=== PATIENT | female | born 1950 | race Native Hawaiian/Other Pacific Islander ===

== ENCOUNTER 2016-10-20 10:39 | Outpatient (CLI) | payer OTHER ==
[~2016-10-20 10:39] MED LIST: HUMALOG100 MG/ML SC; INSU100I2 SC; LISI10TA11 PO; MELOXICAM15 MG PO; METFORMIN ER1000 MG PO; PANT40TA PO
== END 2016-10-20 19:26 | disposition home or self-care (01) ==
LOC: US 10:39
DX: R22.31 Localized swelling, mass and lump, right upper limb (principal)

== ENCOUNTER 2016-11-28 10:31 | Outpatient (CLI) | payer OTHER | END 2016-11-28 12:00 | disposition home or self-care (01) | LOC: MRI 10:31 | DX: R22.31 Localized swelling, mass and lump, right upper limb (principal) | CPT/HCPCS: 36415; 82565; 84520; A9576 ==

== ENCOUNTER 2017-04-09 08:28 | Outpatient (CLI) | payer OTHER ==
[2017-04-09 10:02] LABS: POTASSIUM 4.4 mmol/L (3.6-5.2)
[2017-04-09 11:43] LABS: LDL CHOLESTEROL 136.6 mg/dL (0-99*)
== END 2017-04-09 09:30 | disposition home or self-care (01) ==
LOC: LABW 08:28
PROVIDERS: Internal Medicine
DX: E11.9 Type 2 diabetes mellitus without complications (principal)
CPT/HCPCS: 36415; 80053; 80061; 82043; 82570; 83036

== ENCOUNTER 2017-04-10 10:38 | Outpatient (CLI) | payer OTHER | END 2017-04-10 11:40 | disposition home or self-care (01) | LOC: RAD 10:38 | DX: M85.88 Other specified disorders of bone density and structure, other site (principal); Z13.820 Encounter for screening for osteoporosis ==

== ENCOUNTER 2017-04-14 13:33 | Outpatient (CLI) | payer OTHER | END 2017-04-14 14:50 | disposition home or self-care (01) | LOC: MAMMO 13:33 | DX: Z12.31 Encounter for screening mammogram for malignant neoplasm of breast (principal) ==

== ENCOUNTER 2017-11-19 07:29 | Outpatient (CLI) | payer OTHER ==
[2017-11-19 08:34] LABS: PLATELET COUNT 129 K/uL (152-353)
[2017-11-19 09:04] LABS: POTASSIUM 3.9 mmol/L (3.6-5.2)
== END 2017-11-19 19:22 | disposition home or self-care (01) ==
LOC: LABW 07:29
PROVIDERS: Internal Medicine
DX: E11.9 Type 2 diabetes mellitus without complications (principal); Z86.79 Personal history of other diseases of the circulatory system; R82.99 Other abnormal findings in urine
CPT/HCPCS: 36415; 80053; 80061; 81000; 82043; 82570; 83036; 83880; 84443; 85027; 87088

== ENCOUNTER 2018-02-26 11:37 | Outpatient (CLI) | payer OTHER | END 2018-02-26 19:47 | disposition home or self-care (01) | LOC: RAD 11:37 | DX: K74.69 Other cirrhosis of liver (principal) ==

== ENCOUNTER 2018-03-02 07:50 | Outpatient (CLI) | payer OTHER ==
[2018-03-02 09:06] LABS: POTASSIUM 4.6 mmol/L (3.6-5.2)
== END 2018-03-02 19:04 | disposition home or self-care (01) ==
LOC: LABW 07:50
PROVIDERS: Internal Medicine
DX: Z09 Encounter for follow-up examination after completed treatment for conditions other than malignant neoplasm (principal); E11.9 Type 2 diabetes mellitus without complications; R82.99 Other abnormal findings in urine
CPT/HCPCS: 36415; 80053; 80061; 81000; 82043; 82570; 83036; 84443; 87088

== ENCOUNTER 2018-04-13 07:56 | Outpatient (CLI) | payer OTHER | END 2018-04-13 22:23 | disposition home or self-care (01) | LOC: CT 07:56 | DX: R10.813 Right lower quadrant abdominal tenderness (principal) | CPT/HCPCS: 36415; 82565; 84520; Q9963 ==

== ENCOUNTER 2018-05-04 14:45 | Outpatient (CLI) | payer OTHER | END 2018-05-04 22:44 | disposition home or self-care (01) | LOC: MAMMO 14:45 | DX: E11.9 Type 2 diabetes mellitus without complications (principal); Z12.31 Encounter for screening mammogram for malignant neoplasm of breast ==

== ENCOUNTER 2018-11-03 03:56 | Outpatient (CLI) | payer OTHER | END 2018-11-03 04:11 | disposition short-term general hospital (02) | LOC: AMB 03:56 | DX: L76.22 Postprocedural hemorrhage of skin and subcutaneous tissue following other procedure (principal) | CPT/HCPCS: A0425; A0429 ==

== ENCOUNTER 2018-11-03 04:18 | Emergency (ER) | payer OTHER ==
[~2018-11-03] VITALS: Ht 160 cm; Wt 77.1 kg
[2018-11-03 05:15] LABS: PLATELET COUNT 187 K/uL (152-353)
[2018-11-03 05:34] LABS: POTASSIUM 4.1 mmol/L (3.6-5.2)
[2018-11-03 06:20] LABS: PARTIAL THROMBOPLASTIN TIME 22.6 SECONDS (24.5-33.6)
[2018-11-03 06:47] VITALS: BP 129/65; TEMP 99.5
== END 2018-11-03 06:51 | disposition home or self-care (01) ==
LOC: ED 04:18
PROVIDERS: Internal Medicine
DX: R10.84 Generalized abdominal pain (principal); Z98.890 Other specified postprocedural states; T81.30XA Disruption of wound, unspecified, initial encounter
CPT/HCPCS: 36415; 74022; 80053; 85027; 85610; 85730; 99283

== ENCOUNTER 2018-11-30 14:14 | Inpatient (IN) | payer OTHER ==
[~2018-11-30] VITALS: Ht 160 cm; Wt 81.7 kg
[2018-11-30 16:39] VITALS: BP 107/44; TEMP 98.4; Ht 160 cm; Wt 81.7 kg
[2018-11-30 20:00] VITALS: BP 109/52; TEMP 98.1
[2018-12-01 00:12] VITALS: BP 112/50; TEMP 98.2
[2018-12-01 04:00] VITALS: BP 104/41; TEMP 98.6
[2018-12-01 05:22] LABS: PLATELET COUNT 208 K/uL (152-353)
[2018-12-01 05:45] LABS: POTASSIUM 3.8 mmol/L (3.6-5.2)
[2018-12-01 08:00] VITALS: BP 127/54; TEMP 98.2
[2018-12-01 12:00] VITALS: BP 110/53; TEMP 98.5
[2018-12-01 16:00] VITALS: BP 116/55; TEMP 99
[2018-12-01 20:00] VITALS: BP 105/52; TEMP 100.5
[2018-12-02] VITALS (7 sets, daily range): BP systolic 92–122; BP diastolic 40–57; TEMP 98.7–100
[2018-12-02 04:57] LABS: PLATELET COUNT 232 K/uL (152-353)
[2018-12-02 05:15] LABS: POTASSIUM 4.3 mmol/L (3.6-5.2)
[2018-12-03 04:00] VITALS: BP 111/43; TEMP 99
[2018-12-03 04:37] LABS: PLATELET COUNT 230 K/uL (152-353)
[2018-12-03 04:56] LABS: POTASSIUM 3.5 mmol/L (3.6-5.2)
[2018-12-03 08:00] VITALS: BP 100/36; TEMP 98.8
[2018-12-03 12:00] VITALS: BP 93/41; TEMP 98.1
[2018-12-03 16:00] VITALS: BP 93/41; BP 93/57; TEMP 100.6; TEMP 98.1
[2018-12-03 20:10] VITALS: BP 111/52; TEMP 100.1
[2018-12-04] VITALS: BP 105/63; TEMP 98.1
[2018-12-04 04:00] VITALS: BP 115/43; TEMP 99.7
[2018-12-04 04:50] LABS: PLATELET COUNT 275 K/uL (152-353)
[2018-12-04 05:26] LABS: POTASSIUM 3.9 mmol/L (3.6-5.2)
[2018-12-04 08:00] VITALS: BP 118/49; TEMP 100.1
[2018-12-04 12:00] VITALS: BP 118/59; TEMP 98.2
[2018-12-04 16:00] VITALS: BP 102/50; TEMP 98.2
[2018-12-04 20:00] VITALS: BP 133/58; TEMP 98.7
[2018-12-05] VITALS: BP 102/46; TEMP 98.7
[2018-12-05 04:00] VITALS: BP 105/41; TEMP 99.1
[2018-12-05 08:00] VITALS: BP 92/40; TEMP 98.6
== END 2018-12-05 11:55 | disposition home or self-care (01) | DRG 640 ==
LOC: MED/SURG 14:14
PROVIDERS: ADMIT Internal Medicine
DX: E87.1 Hypo-osmolality and hyponatremia (principal); K65.8 Other peritonitis; E86.0 Dehydration; E87.6 Hypokalemia; K74.69 Other cirrhosis of liver; D50.8 Other iron deficiency anemias; E03.8 Other specified hypothyroidism; I10 Essential (primary) hypertension; E11.42 Type 2 diabetes mellitus with diabetic polyneuropathy; Z85.038 Personal history of other malignant neoplasm of large intestine; R26.81 Unsteadiness on feet
CPT/HCPCS: 36415; 80053; 81000; 82140; 85014; 85018; 85027; 86850; 86900; 86901; 86922; J1650; J1815; J1940; P9016

== ENCOUNTER 2019-02-25 11:39 | Outpatient (CLI) | payer OTHER | END 2019-02-25 21:46 | disposition home or self-care (01) | LOC: LAB 11:39 | DX: R50.9 Fever, unspecified (principal); R30.0 Dysuria | CPT/HCPCS: 81000 ==

== ENCOUNTER 2019-03-08 16:53 | Inpatient (IN) | payer OTHER ==
[~2019-03-08] VITALS: Ht 160 cm; Wt 81.2 kg
[2019-03-08 17:08] VITALS: BP 103/49; TEMP 98.1
[2019-03-08] MEDS ORDERED: GLIP10TA55 PO (17:10)
[2019-03-08] MEDS ORDERED: FUROSEMIDE20 MG PO (17:10)
[2019-03-08] MEDS ORDERED: ASA LOW DOSE81 MG PO (17:10)
[2019-03-08] MEDS ORDERED: METOPROLOL25 M1 PO (17:11)
[2019-03-08] MEDS ORDERED: METOCLOPRAMIDE10 M1 PO (17:11)
[2019-03-08] MEDS ORDERED: TRAMADOL HYDROC50 MG PO (17:12)
[2019-03-08] MEDS ORDERED: SPIRONOLACT25 MG PO (17:12)
[2019-03-08] MEDS ORDERED: CVS SENNA8.6 MG PO (17:12)
[2019-03-08] MEDS ORDERED: HYDR10TA51 PO (17:13)
[2019-03-08] MEDS ORDERED: ALPR0.2566 PO (17:14)
[2019-03-08 17:43] LABS: PLATELET COUNT 235 K/uL (152-353)
[2019-03-08 17:54] LABS: POTASSIUM 4.3 mmol/L (3.6-5.2)
[2019-03-08 23:16] VITALS: BP 111/37; TEMP 99.6; Ht 160 cm; Wt 81.2 kg
[2019-03-09] VITALS: BP 111/37; TEMP 99.6
[2019-03-09 04:00] VITALS: BP 118/53; TEMP 99.4
[2019-03-09 05:47] LABS: PLATELET COUNT 211 K/uL (152-353)
[2019-03-09 06:03] LABS: POTASSIUM 3.9 mmol/L (3.6-5.2)
[2019-03-09 08:00] VITALS: BP 92/43; TEMP 98.7
[2019-03-09 12:00] VITALS: BP 117/50; TEMP 98.6
[2019-03-09 16:00] VITALS: BP 108/43; TEMP 98.1
== END 2019-03-09 22:48 | disposition home health service (06) | DRG 374 ==
LOC: ED 16:53 → MED/SURG 20:00
PROVIDERS: Family Medicine; ADMIT Internal Medicine
PROC: 30233N1 Transfusion of Nonautologous Red Blood Cells into Peripheral Vein, Percutaneous Approach (ICD-10-PCS; principal; 2019-03-08)
DX: C18.6 Malignant neoplasm of descending colon (principal); K65.2 Spontaneous bacterial peritonitis; K76.6 Portal hypertension; R18.8 Other ascites; E87.1 Hypo-osmolality and hyponatremia; D63.8 Anemia in other chronic diseases classified elsewhere; K74.69 Other cirrhosis of liver; E11.65 Type 2 diabetes mellitus with hyperglycemia; E03.8 Other specified hypothyroidism; I50.9 Heart failure, unspecified
CPT/HCPCS: 36415; 80053; 81000; 85027; 86850; 86900; 86901; 86922; 96360; 96365; 99284; J3490; P9016

== ENCOUNTER 2019-04-05 19:58 | Outpatient (CLI) | payer OTHER ==
[~2019-04-05 19:58] MED LIST changes: +ALPR0.2566 PO; +ASA LOW DOSE81 MG PO; +CVS SENNA8.6 MG PO; +FUROSEMIDE20 MG PO; +GLIP10TA55 PO; +HYDR10TA51 PO; +METOCLOPRAMIDE10 M1 PO; +METOPROLOL25 M1 PO; +SPIRONOLACT25 MG PO; +TRAMADOL HYDROC50 MG PO
== END 2019-04-05 22:50 | disposition home or self-care (01) ==
LOC: LAB 19:58
DX: N39.0 Urinary tract infection, site not specified (principal)
CPT/HCPCS: 81000; 87077; 87086; 87088; 87186